=== PATIENT | female | born 1965 | race African-American/Black ===

== ENCOUNTER 2016-06-24 11:32 | Emergency (ER) ==
[2016-06-24 11:37] VITALS: BP 155/104; TEMP 98.2; BMI 37.2
--- NOTE | 2016-06-24 12:19 | CT ---
EXAM: CT head without contrast HISTORY: Trauma COMPARISON: Same day CT cervical spine and CT head 01/03/2014 and 08/19/2013 TECHNIQUE: Serial axial images of the brain were obtained from the skull base to the vertex without IV contrast. FINDINGS: The ventricles, cisterns and sulci are normal. The green-white matter junction is well ma intained. No midline shift or mass is identified. There is no abnormal intra or extra-axial fluid collection. The paranasal sinuses and mastoid air cells are clear. The osseous calvarium is intact . IMPRESSION: No acute intracranial abnormality or hemorrhage.
--- NOTE | 2016-06-24 12:21 | DI ---
EXAM: Chest one view HISTORY: Syncope COMPARISON: 08/19/2013 TECHNIQUE: Single view of the chest was performed FINDINGS: The lungs are clear. There is no pleural effusion or pneumothorax. The heart is normal in size. The mediastinal contour is normal. There are no acute abnormalities of the bones. IMPRESSION: No acute cardiopulmonary process.
--- NOTE | 2016-06-24 12:23 | CT ---
EXAM: CT cervical spine without contrast. HISTORY: Trauma COMPARISON: CT cervical spine 01/03/2014 and 04/04/2013 and ultrasound thyroid 02/05/2014 TECHNIQUE: Serial axial images of the cervical spine were obtained from the skull base through the lung apices without contrast. These were viewed in multiple planes. FINDINGS: There is no acute compression fracture or subluxation. There is straightening of the cer vical spine. There is mild narrowing and degenerative change noted at C5-C6. The facets and roll skinner ior processes are unremarkable. The odontoid process is unremarkable. The C1 ring is intact. There is bilateral mild neural foraminal narrowing noted at C5-C6. There is no significant central or neural foraminal narrowing at additional levels with multilevel degenerative disease. This is no t significantly changed from prior examination. The thyroid is heterogeneous with a 3.9 by a least 2.6 cm mass present anteriorly. Thyroid is heter ogeneous otherwise with additional low attenuation lesion in the right thyroid measuring 1.6 cm. Th e soft tissues are otherwise unremarkable. IMPRESSION: 1. No acute compression fracture or subluxation of the cervical spine. 2. Multilevel degenerative disease most pronounced at C5-C6 with mild bilateral neural foraminal na rrowing. 3. Large anterior left thyroid mass has increased in size since 2013. Follow-up as clinically sally cated.
--- NOTE | 2016-06-24 12:25 | DI ---
EXAM: Right shoulder three view HISTORY: Trauma COMPARISON: MRI 12/25/2059 FINDINGS: No acute fracture is identified. Chronic ossification about the inferior glenoid. Sugge stion of Hill-Sachs deformity. Sub acromial spurring. Mild osteoarthritis acromioclavicular glenoh umeral joints. IMPERSSION: 1. No acute fracture or dislocation. 2. Suggestion of prior Hill-Sachs as described on MRI 12/25/2015. 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 3. Mild osteoarthritis. Sub acromial spurring
[2016-06-24 12:37] LABS: BASOPHILS % (AUTO) 0.5 % (0.0-3.0); EOSINOPHILS % (AUTO) 0.5 % (0.0-7.0); HEMATOCRIT 34.9 % (37.0-47.0); HEMOGLOBIN 12.3 g/dl (12.0-16.0); IMMATURE GRANULOCYTE % (AUTO) 0.9 % (0.0-5.0); LYMPHOCYTES # (AUTO) 2.7 K/uL (0.60-3.4); LYMPHOCYTES % (AUTO) 45.5 (10.0-50.0); MEAN CORPUSCULAR HEMOGLOBIN 30.4 pg (27.0-31.0); MEAN CORPUSCULAR HGB CONC 35.2 (31.8-35.4); MEAN CORPUSCULAR VOLUME 86.4 fl (81.0-99.0); MONOCYTES # (AUTO) 0.3 K/uL (0.4-2.0); MONOCYTES % (AUTO) 5.8 (0-10); NEUTROPHILS # (AUTO) 2.7 K/ul (2.0-6.9); NEUTROPHILS % (AUTO) 46.8; PLATELET COUNT 277 10^3/uL (140-440); RED BLOOD COUNT 4.04 10^6/ul (4.20-5.40); WHITE BLOOD COUNT 5.84 K/ul (4.6-10.2)
[2016-06-24] MEDS ORDERED: NORCO 5-325 PO STA (13:00)
[2016-06-24 13:07] LABS: ERYTHROCYTE SEDIMENTATION RATE 33 mm/hr (0-20); ESR INTERNAL QC INTERNAL QC VALID
[2016-06-24 13:14] LABS: ALANINE AMINOTRANSFERASE 44 U/L (12-78); ALBUMIN 3.3 g/dL (3.4-5.0); ALBUMIN/GLOBULIN RATIO 0.97; ALKALINE PHOSPHATASE 111 U/L (42-98); ANION GAP 18.9; ASPARTATE AMINO TRANSFERASE 56 U/L (15-37); BILIRUBIN,TOTAL 0.29 mg/dL (0.00-1.20); BLOOD UREA NITROGEN 7 mg/dL (7-18); BUN/CREATININE RATIO 9.85; CALCIUM 9.2 mg/dL (8.2-10.2); CARBON DIOXIDE 21 mmol/L (21-32); CHLORIDE 102 mmol/L (98-107); CREATINE KINASE 650 U/L; CREATININE 0.71 mg/dL (0.60-1.30); GLUCOSE 102 mg/dL (70-110); POTASSIUM 3.9 mmol/L (3.5-5.10); SODIUM 138 mmol/L (136-145); TOTAL PROTEIN 6.7 g/dL (6.4-8.2)
[2016-06-24 13:24] LABS: CREATINE KINASE MB 2.8 ng/ml (0.0-3.6)
--- NOTE | 2016-06-24 13:35 | ED.PDOC ---
General ED Provider: Dr. LIZETH FRANKLIN-ER Chief Complaint: Hypertension Stated Complaint: i jumped up real fast during a game and passed out--my doctor told me i cant do that--i fell on my shoulder which hurts all the time anyway Time Seen by Physician: 11:40 Mode of Arrival: Walk-In Information Source: Patient, Family Exam Limitations: No limitations Primary Care Provider: MARY JIMÉNEZ Nursing and Triage Documentation Reviewed and Agree: Yes Neurological Complaint Exam - Syncope/Near Syncope Complaint/Exam Onset/Duration: this am Symptoms Are: Resolved Episodes Lasting: Seconds Number of Episodes: 1 Episodes Witnessed: Yes Loss of Consciousness: No Associated Head Trauma: No Activity at Onset: Unknown Aggravating: None Alleviating: Reports: None Associated Signs and Symptoms: Denies: Pain, Decreased oral intake, Vomiting, Diarrhea, GI blood loss, Short of air, Chest pain, Palpitations, Diaphoresis, Lightheadedness, Dizziness, Weakness, AMS, Numbness, Headache, Seizure, Remote head trauma, Recent head trauma Cardiac Risk Factors: Reports: Hypertension GI Bleed Risk Factors: Reports: None Dysrhythmia Risk Factors: Reports: >45 years old JVD Present: No Carotid Bruit Present: No Glascow Coma Scale (see protocol): 15 Nystagmus Present: No Gag Reflex Present: Yes Meningeal Signs Positive: No Focal Weakness: Present: None Focal Sensory Loss: Present: None Gait: Normal [id number]: Normal Findings Romberg Test Positive: No Babinski Sign: Negative Right, Negative Left Heel to Toe Normal: Yes Durant-Hallpike Test Positive: No Differential Diagnoses: Dysrhythmia, Hypovolemia, Vasovagal Episode, Other Quality Indicator For Non-Traumatic Chest Pain/Syncope: EKG Performed Review of Systems - Review Of Systems Constitutional: Reports: No symptoms Eyes: Reports: No symptoms Ears, Nose, Mouth, Throat: Reports: No symptoms Respiratory: Reports: No symptoms Cardiac: Reports: Syncope GI: Reports: No symptoms : Reports: No symptoms Musculoskeletal: Reports: No symptoms Skin: Reports: No symptoms Neurological: Reports: No symptoms Endocrine: Reports: No symptoms Hematologic/Lymphatic: Reports: No symptoms All Other Systems: Reviewed and Negative Past Medical History - Past Medical History Previously Healthy: Yes Endocrine: Reports: None Cardiovascular: Reports: None Respiratory: Reports: None Hematological: Reports: None Gastrointestinal: Reports: None Genitourinary: Reports: None Neuro/Psych: Reports: Anxiety Musculoskeletal: Reports: Joint Pain Cancer: Reports: None Last Menstrual Period: n/a - Surgical History General Surgical History: Reports: Unknown - Family History Family History: Reports: Unknown - Social History Smoking Status: Never smoker Hx Substance Use: No Alcohol Screening: Occasionally Physical Exam - Physical Exam Appearance: Well-appearing, No pain distress, Well-nourished Pain Distress: Mild Eyes: RAYF ENT: Ears normal Neck: Supple Respiratory: Airway patent, Breath sounds clear, Breath sounds equal, Respirations nonlabored Cardiovascular: RRR, Pulses normal, No rub, No murmur GI/: Soft, Nontender, No masses, Bowel sounds normal, No Organomegaly Musculoskeletal: Normal strength, ROM intact, No edema, No calf tenderness Skin: Warm, Dry, Normal color Neurological: Sensation intact Psychiatric: Affect appropriate, Mood appropriate Interpretation - Radiology Interpretation Radiology Interpretation By: Radiologist Radiology Results: Positive - EKG Interpretation Time of EKG #1: 13:36 Rate: Normal Rhythm: Sinus Ectopy: None [place]: NL ST Segment: Normal Re-Evaluation - Re-Evaluation Time of Re-Evaluation: 13:36 Status: Improved Vital Signs Stable: Yes Pain Level: 0 Appearance: NAD Lungs: Clear Skin: Warm and Dry Neuro: Alert and Oriented X3 CV: RRR Critical Care Note - Critical Care Note Total Time (mins): 0 Course - Course Hematology/Chemistry: 06/24/16 12:25 06/24/16 12:25 Orders, Labs, Meds: Lab Review 06/24/16 12:25 WBC 5.84 RBC 4.04 L Hgb 12.3 Hct 34.9 L MCV 86.4 MCH 30.4 MCHC 35.2 RDW Coeff of Arfaela 13.6 Plt Count 277 Immature Gran % (Auto) 0.9 Neut % (Auto) 46.8 Lymph % (Auto) 45.5 [place] % (Auto) 5.8 Eos % (Auto) 0.5 Baso % (Auto) 0.5 Immature Gran # (Auto) 0.1 Neut # 2.7 Lymph # 2.7 [place] # 0.3 L Eos # 0.0 Baso # 0.0 ESR 33 H D-Dimer 0.34 Sodium 138 Potassium 3.9 Chloride 102 Carbon Dioxide 21 Anion Gap 18.9 BUN 7 Creatinine 0.71 Estimated GFR (MDRD) 105.00 BUN/Creatinine Ratio 9.85 Glucose 102 Calcium 9.2 Total Bilirubin 0.29 AST 56 H ALT 44 Alkaline Phosphatase 111 H Total Creatine Kinase 650 CK-MB (CK-2) 2.8 CK-MB (CK-2) % 0.18662 Troponin I < 0.0100 Total Protein 6.7 Albumin 3.3 L Globulin 3.4 Albumin/Globulin Ratio 0.97 Orders Category Date Time Status EKG-(ED ONLY) Stat CARDIO 06/24/16 11:43 Completed Top Collar Baster [ED DIRECTOR OF GOLF APPLIED] .ONCE EMERGENCY 06/24/16 11:44 Active CBC W/ AUTO DIFF Stat LAB 06/24/16 12:25 Completed CK [CREATINE KINASE] Stat LAB 06/24/16 12:25 Completed COMPREHENSIVE METABOLIC PANEL Stat LAB 06/24/16 12:25 Completed D-DIMER Stat LAB 06/24/16 12:25 Completed ESR Stat LAB 06/24/16 12:25 Completed TROPONIN I Stat LAB 06/24/16 12:25 Completed Hydrocodone Bit/Acetaminophen [[place] 5-325] MEDS 06/24/16 13:00 Discontinued 1 tab PO ONCE STA CT CERVICAL SPINE W/O CONTRAST Stat RADS 06/24/16 11:[address] HEAD W/O CONTRAST Stat RADS 06/24/16 11:44 Completed CXR [CHEST, 1V AP ONLY] Stat RADS 06/24/16 11:44 Completed SHOULDER, RIGHT MIN 2V Stat RADS 06/24/16 11:43 Completed Medications Discontinued Medications Generic Name Dose Route Start Last Admin Trade Name Freq PRN Reason Stop Dose Admin Acetaminophen/Hydrocodone Bitart 1 tab 06/24/16 13:00 06/24/16 13:06 [place] 5-325 PO 06/24/16 13:01 1 tab ONCE STA Administration Vital Signs: Temp Pulse Resp BP Pulse Ox 06/24/16 11:34 98.2 F 124 H 20 155/104 H 96 Departure - Departure Time of Disposition: 13:36 Disposition: HOME SELF-CARE Discharge Problem: Shoulder blade pain, Thyroid mass Syncope Qualifiers: Syncope type: vasovagal syncope Qualifier Code: (R55) Syncope and collapse Instructions: Syncope (ED) Condition: Good Pt referred to PMD for follow-up: Yes Additional Instructions: norco 5mg q 4hrs prn pain #12--f/u wtih dr jiménez about thryoid mass--consider u/ s or referral to ent or platform power technician Allergies/Adverse Reactions: Allergies codeine [Codeine] Adverse Reaction (Verified 06/24/16 11:37) steroids Adverse Reaction (Uncoded 06/24/16 11:37) Home Medications: Ambulatory Orders Alprazolam [Xanax] 0.5 mg PO QID 11/07/12 Citalopram Hydrobromide [Celexa] 40 mg PO DAILY 11/07/12 Benztropine Mesylate 0.5 mg PO DAILY 08/19/13 Mirtazapine [Remeron] 30 mg PO BEDTIME PRN 08/19/13 Alprazolam 0.5 mg PO BEDTIME 06/24/16 Irbesartan 300 mg PO DAILY 06/24/16 Prazosin HCl 2 mg PO BEDTIME 06/24/16 Risperidone [Risperdal] 3 mg PO BEDTIME 06/24/16 Disposition Discussed With: Patient, Family
== END 2016-06-24 13:46 | disposition home or self-care (01) ==
LOC: ED 11:32
DX: R55 Syncope and collapse (principal); E04.1 Nontoxic single thyroid nodule; I10 Essential (primary) hypertension; M25.511 Pain in right shoulder; W19.XXXA Unspecified fall, initial encounter
CPT/HCPCS: 36415; 80053; 82550; 82553; 84484; 85025; 85379; 85651; 93005; 93010; 99283

== ENCOUNTER 2016-06-25 06:57 | Outpatient (CLI) ==
[2012-10-01 14:25] VITALS: TEMP 97.9
[2016-06-24 11:37] VITALS: BMI 37.2
--- NOTE | 2016-06-25 08:32 | CT ---
EXAM: CT of the abdomen and pelvis with and without contrast History: Periumbilical abdominal pain. Comparison: CT abdomen pelvis 07/23/2014, CT abdomen pelvis 07/18/2014 Technique: Multiplanar CT images through the abdomen pelvis were obtained with and without the admi nistration of IV contrast Findings: Lung bases are free of consolidation. No acute osseous abnormalities. No discrete gallstones identified by CT. Liver is enlarged. Spleen is unremarkable. No renal or ur eteral stones and no hydronephrosis. No abnormal enhancement of the pancreas. No change in the mid mesenteric stranding with associated sub-centimeter soft tissue nodules. No bowel obstruction. Th e appendix is normal. No free air. No ascites. No bladder wall thickening. Adnexal structures ap pear appropriate for patient's age. Normal caliber of the aorta. No perirectal inflammation. 2.3 cm x 1.2 cm subcutaneous soft tissue nodule or small focal area of fluid within the anterior abdomin al wall similar to the previous studies. No renal masses. Adrenal glands are unremarkable. Impression: 1. No change in the mid mesenteric stranding with associated sub-centimeter soft tissue nodules is nonspecific but has been described with mesenteric panniculitis. 2. Hepatomegaly. 3. Small subcutaneous soft tissue nodule or small focal area of fluid within the anterior abdominal wall near the umbilicus is similar to prior studies.
== END 2016-06-25 06:58 | disposition home or self-care (01) ==
LOC: RAD 06:57
PROVIDERS: ATTEND Family Medicine
DX: R10.33 Periumbilical pain (principal)
CPT/HCPCS: 36415

== ENCOUNTER 2016-12-03 08:20 | Outpatient (CLI) ==
[2012-10-01 14:25] VITALS: TEMP 97.9
--- NOTE | 2016-12-03 09:08 | US ---
EXAM: Ultrasound thyroid. HISTORY: Left thyroid nodule. COMPARISON: 02/05/2014. TECHNIQUE: Gage-scale and color Doppler images. FINDINGS: The right lobe of the thyroid measures 5.8 x 3.2 x 2.2 cm. There is diffusely heterogeneous echogeni city. A discrete ovoid circumscribed hyperechoic solid nodule measures 2.2 x 1.5 x 2.4 cm which is stable. Remainder of the right lobe demonstrates diffusely heterogeneous nodular appearance. The thyroid isthmus measures 1.7 cm. The left lobe of the thyroid measures 6.5 x 3.2 x 2.4 cm. There appears to be discrete circumscribe d heterogeneous solid nodule measuring approximately 3.7 x 2.9 x 3.8 cm which has mildly increased i n size from prior.. The remainder of the left lobe is diffusely heterogeneous and nodular in appear ance. IMPRESSION: Mildenlargement of a solid left thyroid nodule. Otherwise stable appearance of the thyroid.
== END 2016-12-03 08:21 | disposition home or self-care (01) ==
LOC: RAD 08:20
PROVIDERS: ATTEND Family Medicine
DX: E04.9 Nontoxic goiter, unspecified (principal)

== ENCOUNTER 2017-01-03 09:09 | Outpatient (CLI) ==
[2012-10-01 14:25] VITALS: TEMP 97.9
== END 2017-01-03 09:10 | disposition home or self-care (01) ==
LOC: LAB 09:09
PROVIDERS: ATTEND Family Medicine
DX: E04.1 Nontoxic single thyroid nodule (principal)
CPT/HCPCS: 36415; 84443

== ENCOUNTER 2017-04-02 12:19 | Emergency (ER) ==
[2017-04-02 12:25] VITALS: BMI 37.5
[2017-04-02 12:54] LABS: BASOPHILS % (AUTO) 0.6 % (0.0-3.0); EOSINOPHILS # (AUTO) 0.1 K/ul (0.0-0.7); EOSINOPHILS % (AUTO) 1.3 % (0.0-7.0); HEMATOCRIT 33.8 % (37.0-47.0); HEMOGLOBIN 11.6 g/dl (12.0-16.0); IMMATURE GRANULOCYTE % (AUTO) 0.6 % (0.0-5.0); LYMPHOCYTES # (AUTO) 1.5 K/uL (0.60-3.4); LYMPHOCYTES % (AUTO) 27.9 (10.0-50.0); MEAN CORPUSCULAR HEMOGLOBIN 29.6 pg (27.0-31.0); MEAN CORPUSCULAR HGB CONC 34.3 (31.8-35.4); MEAN CORPUSCULAR VOLUME 86.2 fl (81.0-99.0); MONOCYTES # (AUTO) 0.4 K/uL (0.4-2.0); MONOCYTES % (AUTO) 8.5 (0-10); NEUTROPHILS # (AUTO) 3.2 K/ul (2.0-6.9); NEUTROPHILS % (AUTO) 61.1; PLATELET COUNT 194 10^3/uL (140-440); RED BLOOD COUNT 3.92 10^6/ul (4.20-5.40); WHITE BLOOD COUNT 5.19 K/ul (4.6-10.2)
[2017-04-02 13:14] LABS: ALBUMIN 3.4 g/dL (3.4-5.0); ALBUMIN/GLOBULIN RATIO 0.89; ANION GAP 13.7; BILIRUBIN,TOTAL 0.33 mg/dL (0.00-1.20); BUN/CREATININE RATIO 7.24; CALCIUM 9.4 mg/dL (8.2-10.2); CREATININE 0.69 mg/dL (0.60-1.30); POTASSIUM 3.7 mmol/L (3.5-5.10); TOTAL PROTEIN 7.2 g/dL (6.4-8.2)
[2017-04-02 13:19] LABS: FLU INTERNAL QC INTERNAL QC VALID; RAPID FLU A NEGATIVE (NEGATIVE); RAPID FLU B NEGATIVE (NEGATIVE)
[2017-04-02 13:50] VITALS: BP 144/88; TEMP 97.9
[2017-04-02] MEDS ORDERED: MOTRIN PO STA (14:00)
[2017-04-02] MEDS ORDERED: NORCO 7.5-325 PO STA (14:01)
--- NOTE | 2017-04-02 14:27 | DI ---
EXAM: CHEST FRONTAL AND LATERAL VIEWS HISTORY: Cough. COMPARISON: 06/24/2016 FINDINGS: Heart size and mediastinal contour remain within normal limits. Mild hyperinflation. The re are scattered calcifications suggesting old granulomatous disease. No acute infiltrates are seen. No vascular congestion. There is no consolidation, visible pleural fluid or pneumothorax. Bones re veal no acute fracture. IMPRESSION: No acute cardiopulmonary process.
--- NOTE | 2017-04-02 14:30 | ED.PDOC ---
General ED Provider: Dr. ROCIO HAYES Chief Complaint: Sore Throat Stated Complaint: Patient is a 51 year old female who comes to the ER with 4 day history of sore throat with mild upper respiratory symtoms. Also complains of Fever Time Seen by Physician: 12:59 Mode of Arrival: Walk-In Information Source: Patient Primary Care Provider: MARY JIMÉNEZ Nursing and Triage Documentation Reviewed and Agree: Yes EENT Complaint Exam - Throat Complaint/Exam Onset/Duration: 4 days Symptoms Are: Still present Timimg: Constant Initial Severity: Moderate Current Severity: Moderate Aggravating: Reports: Eating Associated Signs and Symptoms: Reports: Fever, Dysphagia, Cough Uvula Midline: No Yomaira-tonsillar Fluctuence: No Scarlatinaform Rash Present: No Lesions: Absent: Lip, Gums, Tongue, Buccal Mucosa, Pharynx Exanthem: Absent: Lip, Gums, Tongue, Buccal Mucosa, Pharynx Vesicles: Absent: Lip, Gums, Tongue, Buccal Mucosa, Pharynx Stridor Present: No Sinus Tenderness Present: No Tonsillar Hypertrophy Present: No Tonsillar Exudate Present: No Yomaira-tonsillar Swelling Present: No Adenopathy Present: No Splenomegaly Present: No Differential Diagnoses: Pharyngitis, Tonsillitis, URI Review of Systems - Review Of Systems Constitutional: Reports: Fever Eyes: Reports: No symptoms Ears, Nose, Mouth, Throat: Reports: Throat pain Respiratory: Reports: Cough Cardiac: Reports: No symptoms GI: Reports: No symptoms : Reports: No symptoms Musculoskeletal: Reports: No symptoms Skin: Reports: No symptoms Neurological: Reports: No symptoms Endocrine: Reports: No symptoms Hematologic/Lymphatic: Reports: No symptoms All Other Systems: Reviewed and Negative Past Medical History - Past Medical History Previously Healthy: Yes Endocrine: Reports: None Cardiovascular: Reports: None Respiratory: Reports: None Hematological: Reports: None Gastrointestinal: Reports: None Genitourinary: Reports: None Neuro/Psych: Reports: Anxiety Musculoskeletal: Reports: Joint Pain Cancer: Reports: None Last Menstrual Period: 3 yrs ago - Surgical History General Surgical History: Reports: Unknown - Family History Family History: Reports: Unknown - Social History Smoking Status: Never smoker Hx Substance Use: No Alcohol Screening: Occasionally Physical Exam - Physical Exam Appearance: Ill-appearing Ill-appearing: Mild Pain Distress: Mild Eyes: RAFY, EOMI, Conjunctiva clear ENT: Erythema Respiratory: Airway patent, Breath sounds clear, Breath sounds equal, Respirations nonlabored Cardiovascular: RRR, Pulses normal, No rub, No murmur GI/: Soft, Nontender, No masses, Bowel sounds normal, No Organomegaly Musculoskeletal: Normal strength, ROM intact, No edema, No calf tenderness Skin: Warm, Dry, Normal color Neurological: Sensation intact, Motor intact, Alert, Oriented Psychiatric: Affect appropriate, Mood appropriate Critical Care Note - Critical Care Note Total Time (mins): 0 Course - Course Hematology/Chemistry: 04/02/17 12:45 04/02/17 12:45 Orders, Labs, Meds: Lab Review 04/02/17 04/02/17 04/02/17 12:36 12:45 12:45 WBC 5.19 RBC 3.92 L Hgb 11.6 L Hct 33.8 L MCV 86.2 MCH 29.6 MCHC 34.3 RDW Coeff of Rafaela 12.8 Plt Count 194 Immature Gran % (Auto) 0.6 Neut % (Auto) 61.1 Lymph % (Auto) 27.9 [place] % (Auto) 8.5 Eos % (Auto) 1.3 Baso % (Auto) 0.6 Immature Gran # (Auto) 0.0 Neut # 3.2 Lymph # 1.5 [place] # 0.4 Eos # 0.1 Baso # 0.0 Sodium 138 Potassium 3.7 Chloride 105 Carbon Dioxide 23 Anion Gap 13.7 BUN 5 L Creatinine 0.69 Estimated GFR (MDRD) 109.00 BUN/Creatinine Ratio 7.24 Glucose 100 Lactic Acid Calcium 9.4 Total Bilirubin 0.33 AST 41 H ALT 34 Alkaline Phosphatase 107 H Total Protein 7.2 Albumin 3.4 Globulin 3.8 Albumin/Globulin Ratio 0.89 Procalcitonin Influenza A (Rapid) Negative Influenza B (Rapid) Negative 04/02/17 04/02/17 12:45 12:45 WBC RBC Hgb Hct MCV MCH MCHC RDW Coeff of Rafaela Plt Count Immature Gran % (Auto) Neut % (Auto) Lymph % (Auto) [place] % (Auto) Eos % (Auto) Baso % (Auto) Immature Gran # (Auto) Neut # Lymph # [place] # Eos # Baso # Sodium Potassium Chloride Carbon Dioxide Anion Gap BUN Creatinine Estimated GFR (MDRD) BUN/Creatinine Ratio Glucose Lactic Acid 23.6 H Calcium Total Bilirubin AST ALT Alkaline Phosphatase Total Protein Albumin Globulin Albumin/Globulin Ratio Procalcitonin < 0.05 Influenza A (Rapid) Influenza B (Rapid) Orders Category Date Time Status IV ACCESS ONCE CARE 04/02/17 12:34 Active ED APPLY O2 .ONCE EMERGENCY 04/02/17 12:34 Active ED COLLISION WORKER APPLIED .ONCE EMERGENCY 04/02/17 12:34 Active ED VITAL SIGNS Q1HR EMERGENCY 04/02/17 12:34 Active CBC W/ AUTO DIFF Stat LAB 04/02/17 12:45 Completed COMPREHENSIVE METABOLIC PANEL Stat LAB 04/02/17 12:45 Completed LACTIC ACID Stat LAB 04/02/17 12:45 Completed MOLECULAR GROUP A STREP Stat LAB 04/02/17 12:36 Results PROCALCITONIN Stat LAB 04/02/17 12:45 Completed RAPID FLU A/B Stat LAB 04/02/17 12:36 Completed STREP SCREEN Stat LAB 04/02/17 12:36 Results Hydrocodone Bit/Acetaminophen [[place] 7.5-325] MEDS 04/02/17 14:01 Discontinued 1 tab PO ONCE STA CHEST, 2 VIEWS PA & LAT Stat RADS 04/02/17 14:02 Completed Medications Discontinued Medications Generic Name Dose Route Start Last Admin Trade Name Freq PRN Reason Stop Dose Admin Acetaminophen/Hydrocodone Bitart 1 tab 04/02/17 14:01 04/02/17 14:15 [place] 7.5-325 PO 04/02/17 14:02 1 tab ONCE STA Administration Vital Signs: Temp Pulse Resp BP Pulse Ox 04/02/17 13:50 97.9 F 93 H 144/88 H 100 04/02/17 12:19 101 F H 103 H 16 153/88 H 97 Departure - Departure Time of Disposition: 14:28 Disposition: HOME SELF-CARE Discharge Problem: Sore throat symptom Instructions: Pharyngitis (ED) Condition: Fair Pt referred to PMD for follow-up: Yes Additional Instructions: Push fluids Take medications as prescribed Follow up with PCP in3 days. Prescriptions: Hydrocodone/Acetaminophen [[place] 5-325 Tablet] 1 tab PO Q6HR PRN #12 tablet PRN Reason: PAIN Azithromycin [Zithromax] 250 mg PO DIRECTED #6 tablet Benzonatate [Tessalon Perles] 100 mg PO TID PRN #25 capsule PRN Reason: Cold Symptons Allergies/Adverse Reactions: Allergies codeine [Codeine] Adverse Reaction (Verified 04/02/17 12:26) steroids Adverse Reaction (Uncoded 06/24/16 11:37) Home Medications: Ambulatory Orders Alprazolam [Xanax] 0.5 mg PO QID 11/07/12 Citalopram Hydrobromide [Celexa] 40 mg PO DAILY 11/07/12 Benztropine Mesylate 0.5 mg PO DAILY 08/19/13 Mirtazapine [Remeron] 30 mg PO BEDTIME PRN 08/19/13 Irbesartan 300 mg PO DAILY 06/24/16 Prazosin HCl 2 mg PO BEDTIME 06/24/16 Risperidone [Risperdal] 3 mg PO BEDTIME 06/24/16 Azithromycin [Zithromax] 250 mg PO DIRECTED #6 tablet 04/02/17 Benzonatate [Tessalon Perles] 100 mg PO TID PRN #25 capsule 04/02/17 Hydrocodone/Acetaminophen [[place] 5-325 Tablet] 1 tab PO Q6HR PRN #12 tablet 01/09 Disposition Discussed With: Patient
== END 2017-04-02 14:36 | disposition home or self-care (01) ==
LOC: ED 12:19
DX: J02.9 Acute pharyngitis, unspecified (principal)
CPT/HCPCS: 36415; 80053; 83605; 84145; 85025; 87651; 87804; 87880; 99283

== ENCOUNTER 2017-07-20 07:15 | Emergency (ER) ==
[2017-07-20 07:23] VITALS: BP 124/79; TEMP 98; BMI 37.2
--- NOTE | 2017-07-20 08:52 | ED.PDOC ---
General ED Provider: Dr. REGINA MOSQUEDA Chief Complaint: Respiratory Complaint Stated Complaint: flu like symp Time Seen by Physician: 07:17 Mode of Arrival: Walk-In Information Source: Patient Exam Limitations: No limitations Primary Care Provider: MARY JIMÉNEZ Nursing and Triage Documentation Reviewed and Agree: Yes Reviewed sepsis parameters & appropriate labs ordered?: Yes System Inflammatory Response Syndrome: Not Applicable Sepsis Protocol: For patient's 13 years and over: Temp is 96.8 and below OR 101 and greater Pulse >90 BPM Resp >20/minute Acutely Altered Mental Status Are patient's symptoms suggestive of a new infection, such as: -Pneumonia -Skin, Soft Tissue -Endocarditis -UTI -Bone, Joint Infection -Implantable Device -Acute Abdominal Infection -Wound Infection -Meningitis -Blood Stream Catheter Infection -Unknown System Inflammatory Response Syndrome: Not Applicable Respiratory Complaint Exam - Respiratory Complaint/Exam Symptoms Are: Resolved Timing: Intermittent Initial Severity: Mild Current Severity: Mild Location: Nose, Throat, Chest Character: Reports: Non-productive cough Aggravating: Reports: None Alleviating: Reports: None Associated Signs and Symptoms: Reports: URI, Nasal congestion. Denies: Rapid breathing, Dyspnea, Fever, Chills, Chest pain, Pleuritic chest pain, Wheezing, Hemoptysis, Dizziness, Calf pain, Calf swelling, Edema, Hoarseness, Sinus discomfort, Vomiting, Sore throat, Weight loss, Decreased oral intake, Increased thirst, Increased appetite, Increased urination Related History: Reports: Similar episode History of Healthcare-Acquired Pneumonia: No Related Surgical History: Reports: None Pulmonary Embolism Risk Factors: None Cardiac Risk Factors: Reports: None Pseudomonas Risk Factors: Reports: None Tuberculosis Risk Factors: Reports: None Status Asthmaticus Risk Factors: Reports: None Home Oxygen Use: No Recent Stress Test: No Recent Echo/LV Function: No Current Antibiotic Use: No Current Asthma Medication Use: No Respiratory Distress: None Inadequate Respiratory Effort: No Dysphagia Present: No Stridor Present: No JVD Present: No Retractions: Not Present Diminished Breath Sounds: No Sinus Tenderness: None Grunting Respirations: No Kussmaul Respirations: No Differential Diagnoses: Pneumonia, Bronchitis Review of Systems - Review Of Systems Constitutional: Reports: Chills, Fever, Malaise Eyes: Reports: No symptoms Ears, Nose, Mouth, Throat: Reports: No symptoms Respiratory: Reports: Cough Cardiac: Reports: No symptoms GI: Reports: No symptoms : Reports: No symptoms Musculoskeletal: Reports: No symptoms Skin: Reports: No symptoms Neurological: Reports: No symptoms Endocrine: Reports: No symptoms Hematologic/Lymphatic: Reports: No symptoms All Other Systems: Reviewed and Negative Past Medical History - Past Medical History Previously Healthy: Yes Endocrine: Reports: None Cardiovascular: Reports: None Respiratory: Reports: None Hematological: Reports: None Gastrointestinal: Reports: None Genitourinary: Reports: None Neuro/Psych: Reports: Anxiety Musculoskeletal: Reports: Joint Pain Cancer: Reports: None Last Menstrual Period: menopause - Surgical History General Surgical History: Reports: Unknown - Family History Family History: Reports: Unknown - Social History Smoking Status: Never smoker Hx Substance Use: No Alcohol Screening: Occasionally Physical Exam - Physical Exam Appearance: Well-appearing, No pain distress, Well-nourished Eyes: RAFY, EOMI, Conjunctiva clear ENT: Ears normal, Nose normal, Oropharynx normal Respiratory: Airway patent, Breath sounds clear, Breath sounds equal, Respirations nonlabored Cardiovascular: RRR, Pulses normal, No rub, No murmur GI/: Soft, Nontender, No masses, Bowel sounds normal, No Organomegaly Musculoskeletal: Normal strength, ROM intact, No edema, No calf tenderness Skin: Warm, Dry, Normal color Neurological: Sensation intact, Motor intact, Reflexes intact, Cranial nerves intact, Alert, Oriented Psychiatric: Affect appropriate, Mood appropriate Critical Care Note - Critical Care Note Total Time (mins): 0 Course - Course Orders, Labs, Meds: Lab Review 07/20/17 07:35 Influ A Molecular Assay Negative by naat Influ B Molecular Assay Positive by naat H Orders Category Date Time Status FLU A/B MOLECULAR Stat LAB 07/20/17 07:35 Completed MOLECULAR GROUP A STREP Stat LAB 07/20/17 07:30 Completed CHEST, 2 VIEWS PA & LAT Stat RADS 07/20/17 07:33 Taken Vital Signs: Temp Pulse Resp BP Pulse Ox 07/20/17 07:15 98 F 101 H 20 124/79 95 Departure - Departure Time of Disposition: 08:52 Disposition: HOME SELF-CARE Discharge Problem: Influenza B Instructions: Influenza (ED) Condition: Good Pt referred to PMD for follow-up: Yes IPMP verified?: No Additional Instructions: Please call your Family Physician as soon as possible to schedule a follow-up appointment. Prescriptions: Amoxicillin 500 mg PO Q8HR #21 tablet Allergies/Adverse Reactions: Allergies codeine [Codeine] Adverse Reaction (Verified 07/20/17 07:25) steroids Adverse Reaction (Uncoded 07/20/17 07:25) Home Medications: Ambulatory Orders Alprazolam [Xanax] 0.5 mg PO QID 11/07/12 Citalopram Hydrobromide [Celexa] 40 mg PO DAILY 11/07/12 Benztropine Mesylate 0.5 mg PO DAILY 08/19/13 Mirtazapine [Remeron] 30 mg PO BEDTIME PRN 08/19/13 Irbesartan 300 mg PO DAILY 06/24/16 Prazosin HCl 2 mg PO BEDTIME 06/24/16 Risperidone [Risperdal] 3 mg PO BEDTIME 06/24/16 Amoxicillin 500 mg PO Q8HR #21 tablet 07/20/17
--- NOTE | 2017-07-20 09:03 | DI ---
EXAM: CHEST FRONTAL AND LATERAL VIEWS HISTORY: Cough. COMPARISON: 04/02/2017 FINDINGS: Heart size is approaching upper limit normal and is stable. Mild hyperinflation. No acute infiltrates are seen. No vascular congestion. There is no consolidation, visible pleural fluid or pneumothorax. Bones reveal no acute fracture. IMPRESSION: No acute cardiopulmonary process.
== END 2017-07-20 09:08 | disposition home or self-care (01) ==
LOC: ED 07:15
DX: J10.1 Influenza due to other identified influenza virus with other respiratory manifestations (principal)
CPT/HCPCS: 87502; 87651; 99283

== ENCOUNTER 2017-10-25 12:17 | Outpatient (CLI) ==
[2012-10-01 14:25] VITALS: TEMP 97.9
--- NOTE | 2017-10-25 13:08 | US ---
EXAM: Thyroid ultrasound History: Follow-up thyroid nodules. Comparison: Thyroid ultrasound 12/03/2016 Technique: Multiple sonographic images through the thyroid gland were obtained. Color duplex Dopple r was used to interrogate vascular flow. Findings: The right lobe of the thyroid measures 5.4 cm x 3.0 cm x 3.5 cm and again demonstrates multiple nodul es with the largest measuring 3 cm not significantly changed compared to the prior study given differ ences in technique. The thyroid isthmus measures 1.5 cm in thickness. The left lobe of the thyroid measures 7.0 cm x 3.1 cm x 4.0 cm and again demonstrates multiple nodule s largest measuring 4.2 cm not significantly changed compared to the prior study given differences in technique. No extrathyroidal masses are identified. Thyroid gland is heterogeneous and hypervascular. Impression: Enlarged thyroid with multiple nodules not significantly changed compared to the prior st dinay. Thyroid gland is hypervascular.
== END 2017-10-25 12:18 | disposition home or self-care (01) ==
LOC: RAD 12:17
PROVIDERS: ATTEND Physician Assistant
DX: E04.1 Nontoxic single thyroid nodule (principal)

== ENCOUNTER 2017-11-24 09:28 | Outpatient (CLI) ==
[2012-10-01 14:25] VITALS: TEMP 97.9
--- NOTE | 2017-11-24 11:20 | CT ---
EXAM: CT abdomen without contrast HISTORY: Abdominal swelling/mass COMPARISON: CT abdomen pelvis 06/25/2016 and multiple priors TECHNIQUE: Serial axial images of the abdomen were performed from the lung bases through the superio r pelvis without contrast. These were viewed in multiple planes. FINDINGS: Lung bases are clear. There are calcified granulomas in the hilum. Evaluation is limited due to lack of contrast. The liver is unremarkable and enlarged. The gallblad hoda is normal. The adrenal glands are normal. The kidneys are normal. The spleen is normal. Pancr eas is normal. There is hazy ground-glass and mesenteric lymph nodes in the abdomen. The small cecelia l is normal. The colon demonstrates low attenuation in the mucosal wall suggestive of prior infectio n. There is no free air. There is a ventral abdominal hernia containing fat which contains mild hira unt of low attenuation fluid. This is unchanged. Limited evaluation of the osseous structures are unremarkable. IMPRESSION: 1. No change in fat-containing ventral abdominal hernia. 2. Hazy ground-glass and lymph nodes in the mesentery is nonspecific and unchanged and may represent mesenteric adenitis versus mild lymphoproliferative process. Unchanged from prior exam. 3. Unchanged mild hepatomegaly.
== END 2017-11-24 09:29 | disposition home or self-care (01) ==
LOC: RAD 09:28
PROVIDERS: ATTEND Physician Assistant
DX: R19.00 Intra-abdominal and pelvic swelling, mass and lump, unspecified site (principal)

== ENCOUNTER 2017-11-25 09:31 | Outpatient (CLI) ==
[2012-10-01 14:25] VITALS: TEMP 97.9
--- NOTE | 2017-11-25 10:21 | CT ---
EXAM: CT neck was performed without contrast. TECHNIQUE: Helical axial CT of the neck was performed without contrast with coronal and sagittal karrie nstructions. COMPARISON: Thyroid ultrasound from 10/25/[address] of the cervical spine from 06/24/2016 HISTORY: Neck mass FINDINGS: There is enlargement and heterogeneous appearance of the thyroid with a mass on the right m easuring 2.2 cm and on the left measuring 4.2 cm. The trachea slightly indented anteriorly from the left. There are a few calcifications seen on the left. This appearance is relatively unchanged There is no pathologic adenopathy identified. The fat planes of the deep face and neck are well preserved. The visualized salivary glands are sym metric with no mass lesions or inflammation. The thyroid gland is unremarkable. The visualized portio ns of the carotid arteries, vertebral arteries and jugular veins are normal. There are no tonsillar o r nasopharyngeal masses. The mobile tongue, base of the tongue, false and true cords are symmetric. T here is no focal abnormality seen in the subglottic glottic or supraglottic airway which is widely pa tent. The visualized orbits are symmetric with no mass lesions. The visualized paranasal sinuses demo nstrate no fluid levels. The intracranial contents and visualized portions of the temporal bones are normal. The lung apices show no infiltrate or masses. There is no acute upper mediastinal abnormalit y. The visualized portion of the upper esophagus is normal. There are no acute osseous abnormalities. There is some minimal atherosclerosis of the aorta. IMPRESSION: 1. Stable thyroid masses as described. If not already done, interventional ultrasound guided biopsy could be performed. No evidence for pathologic adenopathy.
== END 2017-11-25 09:32 | disposition home or self-care (01) ==
LOC: RAD 09:31
PROVIDERS: ATTEND Physician Assistant
DX: R22.1 Localized swelling, mass and lump, neck (principal)

== ENCOUNTER 2018-05-05 13:09 | Outpatient (CLI) ==
[2012-10-01 14:25] VITALS: TEMP 97.9
--- NOTE | 2018-05-05 14:56 | US ---
EXAM: Thyroid ultrasound History: Follow-up thyroid nodules. Comparison: Thyroid ultrasound 10/25/2017 Technique: Multiple sonographic images through the thyroid gland were obtained. Color duplex Dopple r was used to interrogate vascular flow. Findings: The right lobe of the thyroid measures 5.6 cm x 3.8 cm x 2.3 cm and again demonstrates multiple nodul es with the largest being solid and measuring 3 cm not significantly changed compared to the prior st udy. The thyroid isthmus measures 1.6 cm in thickness. The left lobe of the thyroid measures 7.2 cm x 3.1 cm x 3.6 cm and again demonstrates multiple nodule s with the largest being complex and mostly solid measuring 4.3 cm not significantly changed compared to the prior study. Impression: Enlarged multinodular thyroid gland not significantly changed compared to the prior stud y
== END 2018-05-05 13:10 | disposition home or self-care (01) ==
LOC: RAD 13:09
PROVIDERS: ATTEND Physician Assistant
DX: E04.2 Nontoxic multinodular goiter (principal)

== ENCOUNTER 2018-07-31 10:08 | Outpatient (CLI) ==
[2012-10-01 14:25] VITALS: TEMP 97.9
--- NOTE | 2018-07-31 11:24 | MAMMO ---
EXAM: Bilateral digital screening mammogram (2-D and 3-D) History: Screening Comparison: Bilateral mammogram 07/29/2017 Findings: MLO and CC views of bilateral breasts demonstrate predominately fatty replaced breast pare nchyma. CAD was reviewed by the radiologist. Tomosynthesis was performed. There are no dominant ma sses, no suspicious microcalcifications and no architectural distortions Impression: Stable negative mammogram. Recommend followup routine screening mammography in 1 year. BIRADS 1, negative
== END 2018-07-31 10:09 | disposition home or self-care (01) ==
LOC: RAD 10:08
PROVIDERS: ATTEND Nurse Practitioner Family
DX: Z12.31 Encounter for screening mammogram for malignant neoplasm of breast (principal)